=== PATIENT | female | born 1995 | race Caucasian/White ===

== ENCOUNTER → 2016-10-21 | Outpatient (CLI) | payer SELFPAY ==
--- NOTE | 2016-10-21 14:35 | RADIOLOGY REPORT (SQ) ---
EXAM DESCRIPTION: U/S OB 14+ TRNABD 1GES W/O DOP COMPLETED DATE/TIME: 10/21/2016 2:08 pm REASON FOR STUDY: ENCOUNTER FOR SUPERVISION OF NORMAL FIRST , SECOND TRIMESTER Z34.82 ENCO UNTER FOR SUPRVSN OF NORMAL , SECOND TRI COMPARISON: None. TECHNIQUE: Static and Dynamic grayscale imaging performed of gravid uterus using transabdominal appr oach. Additional selected color Doppler and spectral images recorded. All stored on PACS. LIMITATIONS: None. FINDINGS: EGA: 15 weeks 2 days TO: 04/12/2017 EFW: Not calculated grams PERCENTILE: Not applicable SHEILA: 4.4 cm PLACENTA: Anterior question circumvallate placenta. PRESENTATION: Breech ANATOMY: HEART RATE: 143 beats per minute. FOUR CHAMBER HEART: Not confirmed THREE VESSEL CORD: Not confirmed CORD INSERTION: Visualized. KIDNEYS AND BLADDER: Not well seen STOMACH: Visualized. Appears normal. SPINE: Normal as visualized. BRAIN AND LATERAL VENTRICLES: Lateral ventricles appear normal. Cerebellum and cisterna magna not we ll seen. OTHER: No other significant finding. MATERNAL ADNEXA: Maternal ovaries not visualized. CERVICAL LENGTH: 2.9 cm Closed. OTHER: No other significant finding. IMPRESSION: 1. There is a live intrauterine gestation of 15 weeks 2 days with estimated date of del carlos of 04/12/2017. Portions of the anatomy were not well seen because of gestational age and f etal movement. 2. Possible circumvallate placenta. Trimester of : Second trimester - 13 weeks 1 day to 27 weeks 6 days. TECHNICAL DOCUMENTATION: JOB ID: [id number] [employer]- All Rights Reserved
== END ==
LOC: RAD 12:52
PROVIDERS: ATTEND Nurse Practitioner Women's Health
DX: Z34.82 Encounter for supervision of other normal pregnancy, second trimester (principal)
CPT/HCPCS: 76805

== ENCOUNTER 2017-03-08 15:39 | Emergency (ER) | payer MEDICAID ==
[2017-03-08] MEDS ORDERED: ASPIRIN 325 MG TABLET PO ONE (16:24)
--- NOTE | 2017-03-08 16:25 | ER Document Report ---
ED Medical Screen (RME) - General Chief Complaint: Blood Pressure Problem Stated Complaint: BLOOD PRESSURE ISSUE, HEADACHE, CHEST PAIN Time Seen by Provider: 03/08/17 16:24 Mode of Arrival: Ambulatory Information source: Patient TRAVEL OUTSIDE OF THE [place] IN LAST 30 DAYS: No - HPI Patient complains to provider of: cp Onset: Yesterday - pt .s states cp started last night and has continued intermittently into today. - Related Data Allergies/Adverse Reactions: No Known Allergies Allergy (Verified 03/08/17 15:42) Physical Exam - Vital signs Vitals: Temp Pulse Resp BP Pulse Ox 98.4 F 99 18 131/80 H 98 03/08/17 15:45 03/08/17 15:45 03/08/17 15:45 03/08/17 15:45 03/08/17 15:45 Course - Vital Signs Vital signs: Temp Pulse Resp BP Pulse Ox 98.4 F 99 18 131/80 H 98 03/08/17 15:45 03/08/17 15:45 03/08/17 15:45 03/08/17 15:45 03/08/17 15:45
[2017-03-08 16:57] LABS: ABSOLUTE EOSINOPHILS # (AUTO) 0.1 10^3/uL (0.0-0.6); ABSOLUTE LYMPHOCYTES (AUTO) 1.9 10^3/uL (0.5-4.7); ABSOLUTE MONOCYTES (AUTO) 1.2 10^3/uL (0.1-1.4); ABSOLUTE NEUT (AUTO) 11.5 10^3/uL (1.7-8.2); BASOPHILS % (AUTO) 0.1 % (0-2); EOSINOPHILS % (AUTO) 0.7 % (0-6); HEMATOCRIT 34.2 % (36.0-47.0); HEMOGLOBIN 11.8 g/dL (12.0-15.5); LYMPHOCYTES % (AUTO) 12.9 % (13-45); MEAN CORPUSCULAR HEMOGLOBIN 31.3 pg (27.0-33.4); MEAN CORPUSCULAR HGB CONC 34.5 g/dL (32.0-36.0); MEAN CORPUSCULAR VOLUME 91 fl (80-97); PLATELET COUNT 233 10^3/uL (150-450); RED BLOOD COUNT 3.76 10^6/uL (3.72-5.28); RED CELL DISTRIBUTION WIDTH 13.7 % (11.5-14.0); SEGMENTED NEUTROPHILS % (AUTO) 78.3 % (42-78); TOTAL CELLS COUNTED % (AUTO) 100 %; WHITE BLOOD COUNT 14.7 10^3/uL (4.0-10.5)
--- NOTE | 2017-03-08 17:05 | RADIOLOGY REPORT (SQ) ---
EXAM DESCRIPTION: CHEST PA/LAT COMPLETED DATE/TIME: 03/08/2017 4:51 pm REASON FOR STUDY: cp COMPARISON: None. EXAM PARAMETERS: NUMBER OF VIEWS: two views TECHNIQUE: Digital Frontal and Lateral radiographic views of the chest acquired. RADIATION DOSE: NA LIMITATIONS: none FINDINGS: LUNGS AND PLEURA: No opacities, masses or pneumothorax. No pleural effusion. MEDIASTINUM AND HILAR STRUCTURES: No masses or contour abnormalities. HEART AND VASCULAR STRUCTURES: Heart normal size. No evidence for failure. BONES: No acute findings. HARDWARE: None in the chest. OTHER: No other significant finding. IMPRESSION: NO SIGNIFICANT RADIOGRAPHIC FINDING IN THE CHEST. TECHNICAL DOCUMENTATION: JOB ID: [id number] [employer]- All Rights Reserved
[2017-03-08 17:06] LABS: AMORPHOUS SEDIMENT,URINE TRACE /HPF; APPEARANCE,URINE CLOUDY; BILIRUBIN,URINE NEGATIVE (NEGATIVE); COLOR,URINE YELLOW; GLUCOSE, URINE NEGATIVE (NEGATIVE); KETONES,URINE NEGATIVE (NEGATIVE); LEUKOCYTE ESTERASE,URINE NEGATIVE (NEGATIVE); NITRITE,URINE NEGATIVE (NEGATIVE); PROTEIN,URINE NEGATIVE (NEGATIVE); URINE SPECIFIC GRAVITY 1.011; UROBILINOGEN,URINE NEGATIVE mg/dL (<2.0)
[2017-03-08 17:14] LABS: ALANINE AMINOTRANSFERASE 20 U/L (9-52); ALBUMIN 3.8 g/dL (3.5-5.0); ALKALINE PHOSPHATASE 146 U/L (38-126); ANION GAP 5 (5-19); ASPARTATE AMINO TRANSFERASE 14 U/L (14-36); BILIRUBIN,DIRECT 0.3 mg/dL (0.0-0.4); BILIRUBIN,TOTAL 0.3 mg/dL (0.2-1.3); BLOOD UREA NITROGEN 8 mg/dL (7-20); CALCIUM 9.7 mg/dL (8.4-10.2); CARBON DIOXIDE 27 mmol/L (22-30); CHLORIDE 104 mmol/L (98-107); GLUCOSE 77 mg/dL (75-110); POTASSIUM 4.1 mmol/L (3.6-5.0); SODIUM 136.1 mmol/L (137-145); TOTAL PROTEIN 6.9 g/dL (6.3-8.2)
[2017-03-08 17:15] LABS: CREATINE KINASE < 20 U/L (30-135)
[2017-03-08 17:27] LABS: CREATINE KINASE MB < 0.22 ng/mL (<4.55); TROPONIN I < 0.012 ng/mL
[2017-03-08] MEDS ORDERED: FAMOTIDINE 20 MG TABLET PO ONE (19:54)
[2017-03-08] MEDS ORDERED: ACETAMINOPHEN 325 MG TABLET PO ONE (19:55)
--- NOTE | 2017-03-08 20:31 | ER Document Report ---
ED General - General Mode of Arrival: Ambulatory Information source: Patient TRAVEL OUTSIDE OF THE [place] IN LAST 30 DAYS: No <LENNOX SUAREZ - Last Filed: 03/09/17 01:09> <NORMAN GARRETT - Last Filed: 03/09/17 02:52> - General Chief Complaint: Blood Pressure Problem Stated Complaint: BLOOD PRESSURE ISSUE, HEADACHE, CHEST PAIN Time Seen by Provider: 03/08/17 16:24 Notes: Patient is 21 year old female who is currently 35 weeks presents to the emergency department complaining of chest pain and onset last night high blood pressure onset today. Patient states that she was sent to the emergency department by her OBGYN due to high blood pressure. Patient states that her chest pain is better at bedside. Patient denies cramps, light headedness or any vaginal bleeding. (LENNOX SUAREZ) - Related Data Allergies/Adverse Reactions: No Known Allergies Allergy (Verified 03/08/17 15:42) Past Medical History - General Information source: Patient - Social History Smoking Status: Never Smoker Frequency of alcohol use: None Drug Abuse: None Patient has suicidal ideation: No Patient has homicidal ideation: No Renal/ Medical History: Denies: Hx Peritoneal Dialysis <LENNOX SUAREZ - Last Filed: 03/09/17 01:09> - Social History Family History: None <NORMAN GARRETT - Last Filed: 03/09/17 02:52> Review of Systems - Review of Systems -: Yes All other systems reviewed and negative <NORMAN GARRETT - Last Filed: 03/09/17 02:52> Physical Exam <LENNOX SUAREZ - Last Filed: 03/09/17 01:09> <NORMAN GARRETT - Last Filed: 03/09/17 02:52> - Vital signs Vitals: Temp Pulse Resp BP Pulse Ox 98.4 F 99 18 131/80 H 98 03/08/17 15:45 03/08/17 15:45 03/08/17 15:45 03/08/17 15:45 03/08/17 15:45 - Notes Notes: GENERAL: Alert, interacts well. No acute distress. HEAD: Normocephalic, atraumatic. EYES: Appear normal. Pupils equal, round, and reactive to light. ENT: Moist mucus membranes, tongue midline. NECK: Full range of motion. Supple. Trachea midline. LUNGS: Clear to auscultation bilaterally, no wheezes, rales, or rhonchi. No respiratory distress. HEART: Regular rate and rhythm. No murmurs, gallops, or rubs. ABDOMEN: Gravid EXTREMITIES: Moves all 4 extremities spontaneously. Normal strength. No edema. NEUROLOGICAL: Alert and oriented x3. Normal speech. PSYCH: Normal affect, normal mood. SKIN: Warm, dry, normal turgor. No rashes or lesions noted. (LENNOX SUAREZ) Course - Laboratory Result Diagrams: 03/08/17 16:40 03/08/17 16:40 <LENNOX SUAREZ - Last Filed: 03/09/17 01:09> - Laboratory Result Diagrams: 03/08/17 16:40 03/08/17 16:40 - Diagnostic Test Radiology reviewed: Reports reviewed - EKG Interpretation by Me EKG shows normal: Sinus rhythm Rate: Normal Rhythm: NSR <NORMAN GARRETT - Last Filed: 03/09/17 02:52> - Re-evaluation Re-evalutation: 03/09/17 Patient is a 21-year-old female at 35 weeks who comes in with chest pain intermittently. It is not worse with breathing or movement. Patient has had reflux in this and was taking Tums before but stopped doing that because she stated that it felt like it did not help. Blood work within normal limits. Patient also states that there is some concern about her blood pressure being high. Blood pressure here is within normal limits. No protein in urine. No evidence for infection. Chest x-ray clear. Patient was discussed with the HOT METAL MIXER OPERATOR on-call, Dr. Rose and will be sent to labor and delivery for labor check. Patient has no complaints at the time of discharge. We have discussed that the patient's symptoms are atypical for pulmonary embolus and she agrees that we do not need to do imaging at this time. Return immediately if any worsening or concerning symptoms. Stable for discharge. ( NORMAN GARRETT) - Vital Signs Vital signs: Temp Pulse Resp BP Pulse Ox 98.4 F 99 11 L 105/63 97 03/08/17 15:45 03/08/17 15:45 03/08/17 21:01 03/08/17 21:00 03/08/17 21:01 - Laboratory Laboratory results interpreted by me: 03/08/17 03/08/17 03/08/17 16:40 16:40 16:40 WBC 14.7 H Hgb 11.8 L Hct 34.2 L Seg Neutrophils % 78.3 H Lymphocytes % 12.9 L Absolute Neutrophils 11.5 H Sodium 136.1 L Alkaline Phosphatase 146 H Creatine Kinase < 20 L Urine HCG, Qual POSITIVE H Discharge <LENNOX SUAREZ - Last Filed: 03/09/17 01:09> <NORMAN GARRETT - Last Filed: 03/09/17 02:52> - Discharge Clinical Impression: Atypical chest pain GERD (gastroesophageal reflux disease) Qualifiers: Esophagitis presence: esophagitis presence not specified Qualified Code(s): K21.9 - Gastro-esophageal reflux disease without esophagitis Qualifiers: Weeks of gestation: 35 weeks Qualified Code(s): Z3A.35 - 35 weeks gestation of Condition: Stable Disposition: LABOR CHECK Instructions: Chest Pain of Unclear Cause ([facility]), Reflux Disease (GERD) ([facility]) Additional Instructions: Please go directly to Labor and Delivery. Return if you have any worsening or concerning symptoms. Referrals: ADRIANA CASTELLANO MD [Primary Care Provider] - Follow up tomorrow Scribe Attestation: 03/09/17 02:50 I personally performed the services described in the documentation, reviewed and edited the documentation which was dictated to the scribe in my presence, and it accurately records my words and actions. (NORMAN GARRETT)
[2017-03-08 21:30] VITALS: BP 105/63
== END 2017-03-08 21:30 | disposition admitted as inpatient to this hospital (09) ==
LOC: ER 15:39
DX: R07.9 Chest pain, unspecified (principal); K21.9 Gastro-esophageal reflux disease without esophagitis; R03.0 Elevated blood-pressure reading, without diagnosis of hypertension; R51 Headache; Z3A.35 35 weeks gestation of pregnancy
CPT/HCPCS: 99285; 36415; 82553; 82550; 85025; 81025; 80053; 81001; 84484; 71046; J3490 ×2

== ENCOUNTER 2017-03-08 21:40 | Outpatient (CLI) | payer MEDICAID ==
--- NOTE | 2017-03-08 22:16 | Non Stress Test Report ---
Non Stress Test Datetime Report Generated by CPN: 03/08/2017 22:15 DEMOGRAPHIC EGA NST: 35.0 INDICATION Indication for Study: Ordered by Provider MONITORING Monitor Explained: Monitor Explained; Test Explained; Patient Verbalized Understanding Time on Monitor: 03/08/2017 21:40 Time off Monitor: 03/08/2017 22:00 NST Duration: 20 NST INTERVENTIONS NST Interventions: PO Hydration Physician Notified NST: Dr. Rose BABY A: [id number] BABY A Movement : Present Contraction Frequency : no contractions FHR Baseline : 130 Accelerations : 15X15 Decelerations : None Variability : Moderate 6-25bpm NST Review: Meets Criteria for Reactive NST NST Review and Verified By : Linette Garvin RN NST Results: Reactive NST REPORT Report Trigger: Send Report
[2017-03-08 22:37] LABS: APPEARANCE,URINE SLIGHTLY-CLOUDY; BILIRUBIN,URINE NEGATIVE (NEGATIVE); COLOR,URINE YELLOW; GLUCOSE, URINE NEGATIVE (NEGATIVE); KETONES,URINE NEGATIVE (NEGATIVE); LEUKOCYTE ESTERASE,URINE TRACE (NEGATIVE); NITRITE,URINE NEGATIVE (NEGATIVE); PROTEIN,URINE NEGATIVE (NEGATIVE); URINE SPECIFIC GRAVITY 1.013; UROBILINOGEN,URINE NEGATIVE mg/dL (<2.0)
[2017-03-08 22:39] LABS: URINE AMPHETAMINES SCREEN NEGATIVE; URINE BARBITURATES SCREEN NEGATIVE; URINE BENZODIAZEPINES SCREEN NEGATIVE; URINE COCAINE SCREEN NEGATIVE; URINE MARIJUANA (THC) SCREEN NEGATIVE; URINE METHADONE SCREEN NEGATIVE; URINE PHENCYCLIDINE SCREEN NEGATIVE
== END 2017-03-08 22:11 | disposition home or self-care (01) ==
LOC: LC 21:40
PROVIDERS: ATTEND Student in an Organized Health Care Education/Training Program
PROC: 4A1HXCZ Monitoring of Products of Conception, Cardiac Rate, External Approach (ICD-10-PCS; principal; 2017-03-08)
DX: O47.03 False labor before 37 completed weeks of gestation, third trimester (principal); Z3A.35 35 weeks gestation of pregnancy
CPT/HCPCS: 59025; 80307; 81001

== ENCOUNTER 2017-04-10 07:09 | Inpatient (IN) | payer MEDICAID ==
[2017-04-10 10:07] LABS: APPEARANCE,URINE CLEAR; BILIRUBIN,URINE NEGATIVE (NEGATIVE); COLOR,URINE YELLOW; GLUCOSE, URINE NEGATIVE (NEGATIVE); KETONES,URINE TRACE mg/dL (NEGATIVE); LEUKOCYTE ESTERASE,URINE NEGATIVE (NEGATIVE); NITRITE,URINE NEGATIVE (NEGATIVE); PROTEIN,URINE NEGATIVE (NEGATIVE)
[2017-04-10 10:25] LABS: URINE AMPHETAMINES SCREEN NEGATIVE; URINE BARBITURATES SCREEN NEGATIVE; URINE BENZODIAZEPINES SCREEN NEGATIVE; URINE COCAINE SCREEN NEGATIVE; URINE MARIJUANA (THC) SCREEN NEGATIVE; URINE METHADONE SCREEN NEGATIVE; URINE PHENCYCLIDINE SCREEN NEGATIVE
[2017-04-10] MEDS ORDERED: PENICILLIN G POTASSIUM 5,000,000 UNIT in DEXTROSE 5%-WATER 100 ML IV ONE (11:04)
[2017-04-10] MEDS ORDERED: LIDOCAINE 1% INJ-PF (10 MG/ML) 30 ML SDV ONE (11:11)
[2017-04-10] MEDS ORDERED: OXYTOCIN/NORMAL SALINE 20 UNIT/1,000 ML RTUINJ ONE (11:11)
[2017-04-10] MEDS ORDERED: MISOPROSTOL 0.2 MG TABLET ONE (11:11)
[2017-04-10] MEDS ORDERED: PENICILLIN G-K 5 MILLION UNIT VIAL ONE ×2 (11:26→15:30)
[2017-04-10] MEDS ORDERED: RINGERS SOLUTION,LACTATED 1,000 ML IV ONE (11:46)
[2017-04-10] MEDS ORDERED: RINGERS SOLUTION,LACTATED 1,000 ML IV PRN (11:46)
[2017-04-10 11:49] LABS: HEMATOCRIT 34.7 % (36.0-47.0); HEMOGLOBIN 11.7 g/dL (12.0-15.5); MEAN CORPUSCULAR HEMOGLOBIN 29.8 pg (27.0-33.4); MEAN CORPUSCULAR HGB CONC 33.7 g/dL (32.0-36.0); MEAN CORPUSCULAR VOLUME 88 fl (80-97); PLATELET COUNT 249 10^3/uL (150-450); RED BLOOD COUNT 3.93 10^6/uL (3.72-5.28); WHITE BLOOD COUNT 14.6 10^3/uL (4.0-10.5)
[2017-04-10] MEDS ORDERED: EPHEDRINE SULFATE INJ 50 MG/1 ML AMPULE ONE (12:18)
[2017-04-10] MEDS ORDERED: FENTANYL/BUPIVACAINE/NS/PF 200 MCG/100 ML RTUINJ EPI ONE (12:18)
[2017-04-10] MEDS ORDERED: BUPIVACAINE HCL 0.25 % INJ/PF (2.5 MG/1 ML) 30 ML VIAL ONE (12:18)
[2017-04-10] MEDS ORDERED: PENICILLIN G POTASSIUM 2,500,000 UNIT in DEXTROSE 5%-WATER 50 ML IV SCH (15:05)
--- NOTE | 2017-04-10 16:00 | L&D Progress Notes ---
PROGRESS NOTES Datetime Report Generated by CPN: 04/10/2017 16:00 PROGRESS NOTE Impression: Normal Progression of Labor Procedures: Artificial ROM; Sterile Vag Exam Plan: Continue Present Management Informed Consent Obtained: Vaginal Delivery; Risks, Benefits and Alternatives Discussed Vital Signs : Reviewed; Within Normal Limits Comment: S: feeling vaginal/perineal pressure with contractions, pain relieved with epidural O: VSS, cervix and contractions as stated above A: IUP @ 39w5d in labor-stable, progressing, AROM-clear fluid P: labor down x 30min to allow for descend, pt. and FOB asked questions and verbalized understanding. VAGINAL EXAM Dilatation: 10 Dilatation: 5 Effacement: 100 Effacement: 100 Station: 0 Station: -1 Contractions: 3-5 Contractions: 2-5 MEMBRANES Membranes: Ruptured Membranes: Bulging Amniotic Fluid Color: Clear FETUS A FHR - Baseline: 120 Variability: Moderate 6-25bpm Accelerations: 15X15 FHR Category: Category I Presentation: Vertex SIGNATURE SIGNATURE: [id number];[id number] SIGNATURE: [id number] Assignment: Arabella Garcia MD Signature: with User ID: Elena : with User ID: Elena
[2017-04-10] MEDS ORDERED: ACETAMINOPHEN WITH CODEINE #3 TABLET PO PRN ×2 (18:23)
[2017-04-10] MEDS ORDERED: OXYTOCIN/NORMAL SALINE 20 UNIT/1,000 ML RTUINJ IV PRN (18:23)
[2017-04-10] MEDS ORDERED: ZOLPIDEM TARTRATE 5 MG TABLET PO PRN (18:23)
[2017-04-10] MEDS ORDERED: PROMETHAZINE HCL 25 MG SUPP.RECT PR PRN (18:23)
[2017-04-10] MEDS ORDERED: MAGNESIUM HYDROXIDE SUSP 30 ML UDCUP PO PRN (18:23)
[2017-04-10] MEDS ORDERED: ACETAMINOPHEN 650 MG SUPP.RECT PR PRN (18:23)
[2017-04-10] MEDS ORDERED: GLYCERIN/WITCH HAZEL LEAF 1 EACH MED..PAD TP PRN (18:23)
[2017-04-10] MEDS ORDERED: DIBUCAINE 1% OINTMENT 28 GM TP PRN (18:23)
[2017-04-10] MEDS ORDERED: PSEUDOEPHEDRINE HCL 30 MG TABLET PO PRN (18:23)
[2017-04-10] MEDS ORDERED: BENZOCAINE/MENTHOL AEROSOL SPRAY 56 ML TOP PRN (18:23)
[2017-04-10] MEDS ORDERED: NA PHOS,M-B/NA PHOS,DI-BA (ADULT) 133 ML ENEMA PR PRN (18:23)
[2017-04-10] MEDS ORDERED: PROMETHAZINE HCL 25 MG TABLET PO PRN (18:23)
[2017-04-10] MEDS ORDERED: PROMETHAZINE HCL INJ 25 MG/1 ML VIAL IV PRN (18:23)
[2017-04-10] MEDS ORDERED: DIPHENHYDRAMINE HCL 25 MG CAPSULE PO PRN (18:23)
[2017-04-10] MEDS ORDERED: DIPH/PERTUSS(ACELL)/TETANUS VAC/PF 0.5 ML SYR (>=10YO) IM PRN (18:23)
[2017-04-10] MEDS ORDERED: MEASLES,MUMPS&RUBELLA VACC/PF 0.5 ML VIAL SUBCUT PRN (18:23)
--- NOTE | 2017-04-10 19:24 | Warning Signs in Babies ---
VOD Warning Signs Datetime Report Generated by [facility]: 04/10/2017 19:24 VOD#608 -Warning Signs in Babies: Needs to be viewed. (03/08/2017 21:11:Tami Edward RN)
--- NOTE | 2017-04-10 20:00 | Delivery Summary ---
Del Sum A-C Datetime Report Generated by CPN: 04/10/2017 20:00 DELIVERY PERSONNEL DELIVERY PERSONNEL: [id number] Delivery Doctor:: Zoe Owen CNM Nurse Engineering Faculty Certified:: Zoe Owen CNM Labor and Delivery Nurse:: Tami Edward RNcar repairer pullman Nurse:: MARC Butt Nursery Nurse:: Natalie Melton RN Nut Culler/THEATRICAL DRESSER: ST Erica Nut Culler/THEATRICAL DRESSER: Kelly brown Additional Personnel: : dad/mom/dads mom MATERNAL INFORMATION Delivery Anesthesia: Epidural Medications After Delivery: Pitocin Bolus-Please Comment; Pitocin Drip 20 Units/1000ml NSS; Other-Please Comment Meds After Delivery Comment: Cytotec 1000 mcg [place] Maternal Complications: None Provider Comments: After laboring down _45min, pt. began pushing and with much coaching went on to deliver a viable baby boy thru nuchal cord. Spontaneous respiratory effort and cry at delivery. Baby placed on maternal abdomen and cord allowed to stop pulsating then clamped x2 and cut FOB (3vc noted). Placenta delivered spontaneoulsy, trailing membranes noted and out. Vaginal and perineal inspection revealed no lacerations. Fundus @ U-2, firm and minimal bleeding. Mother and baby skin to skin, bonding and stable at this time LABOR SUMMARY EDC: 04/12/2017 00:00 No. Babies in Womb: 1 Attempted: No Labor Anesthesia: Epidural LABOR INFORMATION Reason for Induction: Not Applicable Onset of Labor: 04/10/2017 07:00 Complete Dilatation: 04/10/2017 15:53 Oxytocin: N/A Group B Beta Strep: positive Antibiotics # of Doses: 2 Antibiotics Time of Last Dose: 1530 Name of Antibiotic Given: penicillin Steroids Given: None Reason Steroids Not Administered: Not Applicable MEMBRANES Membranes Rupture Method: Artificial Rupture of Membranes: 04/10/2017 15:53 Length of Rupture (hr): 2.42 Amniotic Fluid Color: Clear Amniotic Fluid Amount: Moderate Amniotic Fluid Odor: Normal STAGES OF LABOR Stage 1 hr: 8 Stage 1 min: 53 Stage 2 hr: 2 Stage 2 min: 25 Stage 3 hr: 0 Stage 3 min: 5 Total Time in Labor hr: 11 Total Time in Labor min: 23 VAGINAL DELIVERY Episiotomy: None Laceration #1: None Laceration #2: None Laceration #3: None Other Laceration: n/a Laceration Repair: Not Applicable Sponge Count Correct: N/A CSECTION DELIVERY Primary Indication: N/A Secondary Indication: N/A CSection Incidence: N/A Labor: N/A Elective: N/A CSection Incision: N/A BABY A INFORMATION Infant Delivery Date/Time: 04/10/2017 18:18 Method of Delivery: Vaginal Born in Route : No : N/A Forceps: N/A Vacuum Extraction: N/A Shoulder Dystocia : No PRESENTATION/POSITION BABY A Presentation: Cephalic Cephalic Presentation: Vertex Vertex Position: Left Occipital Anterior Breech Presentation: N/A PLACENTA INFORMATION BABY A Placenta Delivery Time : 04/10/2017 18:23 Placenta Method of Delivery: Spontaneous Placenta Status: Delivered SCORES BABY A Heart Rate 1 min: >100 bpm Resp Effort 1 min: Good Cry Reflex Irritability 1 min: Cough or Sneeze or Pulls Away Muscle Tone 1 min: Active Motion Color 1 min: Body [place], Extremities Blue Resuscitation Effort 1 min: Tactile Stimulation SCORE 1 MIN: 9 Heart Rate 5 min: >100 bpm Resp Effort 5 min: Good Cry Reflex Irritability 5 min: Cough or Sneeze or Pulls Away Muscle Tone 5 min: Active Motion Color 5 min: Body [place], Extremities Blue Resuscitation Effort 5 min: Tactile Stimulation SCORE 5 MIN: 9 INFORMATION BABY A Gestational Age at Delivery: 39.5 Gestational Status: Full Term- 39- 40.6 Weeks Infant Outcome : Liveborn Infant Condition : Stable Infant Sex: Male IDENTIFICATION BABY A Verification Date/Time: 04/10/2017 18:50 ID Band Number: [id number] Mother's Name Verified: Yes RN Verifying Infant: J, RN and C.Lester, RN WEIGHT/LENGTH BABY A Birthweight (gm): 3440 Weight (lb): 7 Weight (oz): 9 Infant Length (in): 20.00 Length (cm): 50.80 CORD INFORMATION BABY A No. Cord Vessels: 3 Nuchal Cord : Around Neck x1, Loose Cord Blood Taken: Yes-For Eval (Mom's Blood Type - or O+) Infant Suction: None ASSESSMENT BABY A Infant Complications: None Physical Findings at Delivery: Within Normal Limits Respirations: Appears Normal Skin to Skin: Yes Cargo Broker/ALS Called : No Care By: Manjeet Melton RN Transferred To: Remains with Mother BABY B INFORMATION : N/A SIGNATURES Assignment: Arabella Garcia MD Signature: with User ID: Elena : with User ID: Elena
--- NOTE | 2017-04-10 22:03 | Admission Physical ---
Datetime Report Generated by CPN: 04/10/2017 22:03 CURRENT ADMISSION Hx Assessment: The History has been Reviewed and is Current Chief Complaint: Uterine Contractions Indication for Induction: Not Applicable Indication for Induction: Term, Intrauterine ; Active Labor Admit Plan: Admit to Unit; Initiate Labor Protocol ALLERGIES Medication Allergies: No Medication Allergies: No Known Allergies (04/10/2017) Medication Allergies: No Known Allergies (03/08/2017) Latex: No Latex Allergies Food Allergies: none Environmental Allergies: none OBSTETRICAL HISTORY EDC: 04/12/2017 00:00 : 1 Para: 0 Term: 0 : 0 SAB: 0 IAB: 0 Ectopic: 0 Livin Cesareans: 0 VBACs: 0 Multiple Births: 0 Gestational Diabetes: No Rh Sensitization: No Incompetent Cervix: No YASH: No Infertility: No ART Treatment: No Uterine Anomaly: No IUGR: No Hx Previous C/S: No Macrosomia: No Hx Loss/Stillborn: No PIH: No Hx : No Placenta Previa/Abruption: No Depression/PP Depression: No PTL/PROM: No Post Hemorrhage: No Current Procedures: Ultrasound; NST Obstetrical History Comments: G1 current SEE RECORDS Alcohol: No Marijuana : No Cocaine: No Other Illicit Drugs: No Cigarettes: Former Smoker. [id number] MEDICAL HISTORY Diabetes: No Blood Transfusion: No Pulmonary Disease (Asthma, TB): No Breast Disease: No Hypertension: No Data Conversion Operator Surgery: No Heart Disease: No Hosp/Surgery: No Autoimmune Disorder: No Anesthetic Complications: No Kidney Disease: No Abnormal Pap Smear: No Neuro/Epilepsy: No Psychiatric Disorders: No Other Medical Diseases: No Hepatitis/Liver Disease: No Significant Family History: No Varicosities/Phlebitis: No Trauma/Violence : No Thyroid Dysfunction: No INFECTIOUS HISTORY Gonorrhea: Yes Genital Herpes: No Chlamydia: No Tuberculosis: No Syphilis: No Hepatitis: No HIV/AIDS Exposure: No Rash or Viral Illness: No HPV: No Infectious History Comments: test of cure for gonorrhea PHYSICAL EXAM General: Normal HEENT: Deferred Neurologic: Normal Thyroid: Deferred Heart: Normal Lungs: Normal Breast: Deferred Back: Normal Abdomen: Normal Genitourinary Exam: Normal Extremities: Normal DTRs: Deferred Pelvic Type: Adequate Physical Exam Comments: cervix per RN exam VAGINAL EXAM Dilatation: 10 Dilatation: 5 Effacement: 100 Effacement: 100 Station: 0 Station: -1 Contraction Comments: 3-5 Contraction Comments: 2-5 MEMBRANES Membranes: Ruptured Membranes: Bulging Amniotic Fluid Color: Clear FETUS A EGA: 39.5 Monitoring: External US FHR- Baseline: 120 Variability: Moderate 6-25bpm Accelerations: 15X15 Decelerations: None FHR Category: Category I Presentation: Vertex Admit Comment: 21yo @ 39w5d per 15w2d u/s into L_D this AM with UC and cervix changed after walking, admitted for anticipated delivery. Pt. 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 also complicated by Positive chlamydia at NOB with negative ED. Pt. denies any concerns today and reports +FM. Denies LOF/bleeding. Desires epidural for pain control. Dr. Garcia in unit and aware. PLANS FOR LABOR AND DELIVERY Labor and Delivery: None Pain Management: None Feeding Preference: Formula Benefit of Breast Feed Discussed: Yes Circumcision: Yes INFORMED CONSENT Informed Consent Obtained: Vaginal Delivery; Risks, Benefits and Alternatives Discussed Assignment: Arabella Garcia MD Signature: with User ID: Elena : with User ID: [email or web address]
[2017-04-10] MEDS: FAMOTIDINE 20 MG TABLET PO SCH (22:42)
[2017-04-10] MEDS: IBUPROFEN 800 MG TABLET PO SCH (22:42)
[2017-04-11] MEDS: IBUPROFEN 800 MG TABLET PO SCH ×3 (05:56→22:10)
[2017-04-11 08:25] LABS: HEMATOCRIT 28.3 % (36.0-47.0); HEMOGLOBIN 9.5 g/dL (12.0-15.5); MEAN CORPUSCULAR HEMOGLOBIN 30.1 pg (27.0-33.4); MEAN CORPUSCULAR HGB CONC 33.5 g/dL (32.0-36.0); MEAN CORPUSCULAR VOLUME 90 fl (80-97); PLATELET COUNT 198 10^3/uL (150-450); RED BLOOD COUNT 3.16 10^6/uL (3.72-5.28); RED CELL DISTRIBUTION WIDTH 14.5 % (11.5-14.0); WHITE BLOOD COUNT 15.7 10^3/uL (4.0-10.5)
[2017-04-11] MEDS: DOCUSATE SODIUM 100 MG CAPSULE PO SCH ×2 (09:46→17:21)
[2017-04-11] MEDS: FERROUS SULFATE 325 MG TABLET PO SCH ×2 (09:46→17:21)
[2017-04-11] MEDS: FAMOTIDINE 20 MG TABLET PO SCH ×2 (09:46→22:11)
[2017-04-11] MEDS: PRENATAL VITAMIN W DHA CAPSULE PO SCH (09:46)
[2017-04-11] MEDS: SENNOSIDES/DOCUSATE 8.6-50 MG 1 EACH TABLET PO SCH (09:47)
--- NOTE | 2017-04-11 12:20 | PDOC PROGRESS REPORT ---
Subjective-OB Progress Note for:: 04/11/17 Subjective: reports tolerating diet, bleeding slowing, pain controlled with current meds; denies needs. Physical Exam (OB) Vital Signs: Temp Pulse Resp BP Pulse Ox 98.1 F 80 16 115/48 L 100 04/11/17 08:08 04/11/17 08:08 04/11/17 08:08 04/11/17 08:08 04/11/17 08:08 Intake & Output 04/10/17 04/11/17 04/12/17 06:59 06:59 06:59 Weight 72.7 kg - Abdomen Description: Soft, Round Hernia Present: No Fundal Description: Firm, Midline Fundal Height: u/u - u/2 - Abdominal Tenderness: Nontender - Extremities Lower extremities: Tonya's sign - neg Calf: Normal, Nontender Objective-Diagnostic Laboratory: 04/11/17 08:03 04/10/17 04/11/17 11:32 08:03 WBC 15.7 H RBC 3.16 L Hgb 9.5 L D Hct 28.3 L MCV 90 MCH 30.1 MCHC 33.5 RDW 14.5 H Plt Count 198 Blood Type O POSITIVE Antibody Screen NEGATIVE Assessment and Plan(PN) - Assessment and Plan (1) Normal vaginal delivery Is this a current diagnosis for this admission?: Yes (2) Anemia due to acute blood loss Is this a current diagnosis for this admission?: Yes - Time Spent with Patient Time with patient: Less than 15 minutes - Disposition Anticipated Discharge: Home Within: within 24 hours
[2017-04-12] MEDS: IBUPROFEN 800 MG TABLET PO SCH (06:16)
[2017-04-12 08:59] VITALS: BP 109/67
--- NOTE | 2017-04-12 09:22 | PDOC PROGRESS REPORT ---
Subjective-OB Progress Note for:: 04/12/17 Subjective: Doing well, OOB ambulating, eating well, voiding, scant bleeding, unsure of control Physical Exam (OB) Vital Signs: Temp Pulse Resp BP Pulse Ox 97.6 F 77 14 109/67 100 04/12/17 08:36 04/12/17 08:36 04/12/17 08:36 04/12/17 08:36 04/12/17 08:36 Intake & Output 04/11/17 04/12/17 04/13/17 06:59 06:59 06:59 Intake Total 200 Balance 200 Weight 72.7 kg - PIH/Pre-Eclampsia DTR's: 2 + Clonus: Negative Headache: Absent Epigastric Pain: No Visual Changes: No - Lochia Lochia Amount: Scant < 10 ml Lochia Color: Rubra/Red - Abdomen Description: Tender, Soft, Round Hernia Present: No Fundal Description: Firm, Midline Fundal Height: u/u - u/2 Objective-Diagnostic Laboratory: 04/11/17 08:03 Assessment and Plan(PN) - Assessment and Plan (1) Normal vaginal delivery Is this a current diagnosis for this admission?: Yes (2) Anemia due to acute blood loss Is this a current diagnosis for this admission?: Yes - Time Spent with Patient Time with patient: Less than 15 minutes - Disposition Anticipated Discharge: Home Within: Other - home today
--- NOTE | 2017-04-12 09:25 | PDOC DISCHARGE SUMMARY ---
Final Diagnosis Discharge Date: 04/12/17 - Final Diagnosis (1) Normal vaginal delivery Is this a current diagnosis for this admission?: Yes (2) Anemia due to acute blood loss Is this a current diagnosis for this admission?: Yes Discharge Data - Discharge Medication Home Medications: Famotidine [Pepcid 20 mg Tablet] 1 tab PO DAILYP PRN 04/11/17 Vit No.129/Iron/Folic [ One Daily Tablet] 1 tab PO DAILY Gestational Age: 39.5 Reason(s) for Admission: Onset of Labor, Group B Strep Positive Procedures: NST, Ultrasound Intrapartum Procedure(s): Spontaneous Vaginal Delivery Complication(s): Laceration-Vaginal - Data Baby 1 Male at 1 minute: 9 at 5 minutes: 9 Weight: 3.43 kg Home with Mother: Yes Complications: No - Diagnosis Test Laboratory: Temp Pulse Resp BP Pulse Ox 97.6 F 77 14 109/67 100 04/12/17 08:36 04/12/17 08:36 04/12/17 08:36 04/12/17 08:36 04/12/17 08:36 04/10/17 04/10/17 04/10/17 08:01 09:45 11:32 RBC 3.93 Hgb 11.7 L Hct 34.7 L Urine Opiates Screen Cancelled NEGATIVE 04/11/17 08:03 RBC 3.16 L Hgb 9.5 L D Hct 28.3 L Urine Opiates Screen - Discharge information/Instructions Discharge Activity: Activity As Tolerated, No Lifting Over 10 Pounds, No Lifting /Push/Pulling, Pelvic Rest Discharge Diet: As Tolerated, Regular Disposition: HOME, SELF-CARE Follow up with: [facility] in: 4
[2017-04-12] MEDS: PRENATAL VITAMIN W DHA CAPSULE PO SCH (09:37)
[2017-04-12] MEDS: FERROUS SULFATE 325 MG TABLET PO SCH (09:37)
[2017-04-12] MEDS: DOCUSATE SODIUM 100 MG CAPSULE PO SCH (09:37)
[2017-04-12] MEDS: SENNOSIDES/DOCUSATE 8.6-50 MG 1 EACH TABLET PO SCH (09:37)
[2017-04-12] MEDS: FAMOTIDINE 20 MG TABLET PO SCH (10:55)
== END 2017-04-12 12:44 | disposition home or self-care (01) | DRG 775 ==
LOC: LC 07:09 → INTOOBSV 10:59 → LR 10:59 → OBSVTOIN 10:59 → 2S 21:25
PROVIDERS: ADMIT Obstetrics & Gynecology; ATTEND Obstetrics & Gynecology
PROC: 10E0XZZ Delivery of Products of Conception, External Approach (ICD-10-PCS; principal; 2017-04-10)
PROC: 10907ZC Drainage of Amniotic Fluid, Therapeutic from Products of Conception, Via Natural or Artificial Opening (ICD-10-PCS; 2017-04-10)
PROC: 4A1HXCZ Monitoring of Products of Conception, Cardiac Rate, External Approach (ICD-10-PCS; 2017-04-10)
DX: O99.824 Streptococcus B carrier state complicating childbirth (principal); D62 Acute posthemorrhagic anemia; O99.02 Anemia complicating childbirth; O69.81X0 Labor and delivery complicated by cord around neck, without compression, not applicable or unspecified; Z87.891 Personal history of nicotine dependence; Z28.21 Immunization not carried out because of patient refusal; Z3A.39 39 weeks gestation of pregnancy; Z37.0 Single live birth
CPT/HCPCS: 36415; 80307; 81005; 85027; 86592; 86850; 86900; 86901; 88307; J2540; J2590; J3490

== ENCOUNTER 2019-04-28 14:11 | Inpatient (IN) | payer MEDICAID ==
[2019-04-28] MEDS ORDERED: RINGERS SOLUTION,LACTATED 1,000 ML IV ONE (14:36)
[2019-04-28] MEDS ORDERED: RINGERS SOLUTION,LACTATED 1,000 ML IV PRN (14:36)
[2019-04-28] MEDS ORDERED: MORPHINE SULFATE 10 MG/ML INJ IV ONE (14:36)
[2019-04-28] MEDS ORDERED: OXYTOCIN/NORMAL SALINE 20 UNIT/1,000 ML RTUINJ ONE (14:40)
[2019-04-28] MEDS ORDERED: LIDOCAINE 1% INJ-PF (10 MG/ML) 30 ML SDV ONE (14:40)
[2019-04-28] MEDS ORDERED: MISOPROSTOL 0.2 MG TABLET ONE (14:40)
[2019-04-28] MEDS ORDERED: MORPHINE SULFATE 10 MG/ML INJ ONE (14:49)
[2019-04-28 15:20] LABS: ABSOLUTE LYMPHOCYTES (AUTO) 1.2 10^3/uL (0.5-4.7); ABSOLUTE MONOCYTES (AUTO) 0.6 10^3/uL (0.1-1.4); ABSOLUTE NEUT (AUTO) 9.6 10^3/uL (1.7-8.2); BASOPHILS % (AUTO) 0.1 % (0-2); EOSINOPHILS % (AUTO) 0.3 % (0-6); HEMATOCRIT 34.4 % (36.0-47.0); HEMOGLOBIN 11.8 g/dL (12.0-15.5); LYMPHOCYTES % (AUTO) 10.8 % (13-45); MEAN CORPUSCULAR HEMOGLOBIN 29.4 pg (27.0-33.4); MEAN CORPUSCULAR HGB CONC 34.2 g/dL (32.0-36.0); MEAN CORPUSCULAR VOLUME 86 fl (80-97); PLATELET COUNT 174 10^3/uL (150-450); RED CELL DISTRIBUTION WIDTH 16.1 % (11.5-14.0); SEGMENTED NEUTROPHILS % (AUTO) 83.8 % (42-78); TOTAL CELLS COUNTED % (AUTO) 100 %; WHITE BLOOD COUNT 11.4 10^3/uL (4.0-10.5)
[2019-04-28 15:26] LABS: APPEARANCE,URINE CLOUDY; BILIRUBIN,URINE NEGATIVE (NEGATIVE); COLOR,URINE YELLOW; GLUCOSE, URINE NEGATIVE (NEGATIVE); KETONES,URINE NEGATIVE (NEGATIVE); LEUKOCYTE ESTERASE,URINE LARGE (NEGATIVE); NITRITE,URINE NEGATIVE (NEGATIVE); PROTEIN,URINE NEGATIVE (NEGATIVE); URINE SPECIFIC GRAVITY 1.005; UROBILINOGEN,URINE NEGATIVE mg/dL (<2.0)
--- NOTE | 2019-04-28 15:28 | Admission Physical ---
Datetime Report Generated by CPN: 04/28/2019 15:28 CURRENT ADMISSION Chief Complaint: Uterine Contractions Indication for Induction: Not Applicable Admit Impression : Term, Intrauterine Admit Plan: Admit to Unit; Initiate Labor Protocol ALLERGIES Medication Allergies: No Medication Allergies: No Known Allergies (04/10/2017) Latex: No Latex Allergies Food Allergies: denies Environmental Allergies: denies OBSTETRICAL HISTORY EDC: 05/10/2019 00:00 : 2 Para: 1 Term: 1 Livin Cesareans: 0 Gestational Diabetes: No Rh Sensitization: No Incompetent Cervix: No YASH: No Infertility: No ART Treatment: No Uterine Anomaly: No IUGR: No Hx Previous C/S: No Macrosomia: No Hx Loss/Stillborn: No PIH: No Hx : No Placenta Previa/Abruption: No Depression/PP Depression: No PTL/PROM: No Post Hemorrhage: No Current Procedures: Ultrasound; NST Obstetrical History Comments: G1- 2017 39 weeks G2- current + GC/chlam SEE RECORDS Alcohol: No Marijuana : No Cocaine: No Other Illicit Drugs: No Cigarettes: Former Smoker. [id number] MEDICAL HISTORY Diabetes: No Blood Transfusion: No Pulmonary Disease (Asthma, TB): No Breast Disease: No Hypertension: No Electronic Equipment Maint Tech Surgery: No Heart Disease: No Hosp/Surgery: No Autoimmune Disorder: No Anesthetic Complications: No Kidney Disease: No Abnormal Pap Smear: No Neuro/Epilepsy: No Psychiatric Disorders: No Other Medical Diseases: No Hepatitis/Liver Disease: No Significant Family History: No Varicosities/Phlebitis: No Trauma/Violence : No Thyroid Dysfunction: No INFECTIOUS HISTORY Gonorrhea: Yes Genital Herpes: No Chlamydia: Yes Tuberculosis: No Syphilis: No Hepatitis: No HIV/AIDS Exposure: No Rash or Viral Illness: No HPV: No Infectious History Comments: + GC chlam in 2018, ED in 01/2019 PHYSICAL EXAM General: Normal HEENT: Normal Neurologic: Normal Thyroid: Normal Heart: Normal Lungs: Normal Breast: Deferred Back: Normal Abdomen: Normal Genitourinary Exam: Normal Extremities: Normal DTRs: Normal Pelvic Type: Adequate FETUS A EGA: 38.2 PLANS FOR LABOR AND DELIVERY Labor and Delivery: None Pain Management: Medications; Epidural Feeding Preference: Both Benefit of Breast Feed Discussed: Yes Circumcision: N/A INFORMED CONSENT Signature: with User ID: [email or web address]
[2019-04-28] MEDS ORDERED: ACETAMINOPHEN 650 MG SUPP.RECT PR PRN (15:32)
[2019-04-28] MEDS ORDERED: GLYCERIN/WITCH HAZEL LEAF 1 EACH MED..WIPE TP PRN (15:32)
[2019-04-28] MEDS ORDERED: OXYTOCIN/NORMAL SALINE 20 UNIT/1,000 ML RTUINJ IV PRN (15:32)
[2019-04-28] MEDS ORDERED: DIPHENHYDRAMINE HCL 25 MG CAPSULE PO PRN (15:32)
[2019-04-28] MEDS ORDERED: PROMETHAZINE HCL 25 MG SUPP.RECT PR PRN (15:32)
[2019-04-28] MEDS ORDERED: PROMETHAZINE HCL INJ 25 MG/1 ML VIAL IV PRN (15:32)
[2019-04-28] MEDS ORDERED: DIBUCAINE 1% OINTMENT 28 GM TP PRN (15:32)
[2019-04-28] MEDS ORDERED: DIPH/PERTUSS(ACELL)/TETANUS VAC/PF 0.5 ML SYR (>=10YO) IM PRN (15:32)
[2019-04-28] MEDS ORDERED: BENZOCAINE/MENTHOL AEROSOL SPRAY 56 ML TOP PRN (15:32)
[2019-04-28] MEDS ORDERED: PROMETHAZINE HCL 25 MG TABLET PO PRN (15:32)
[2019-04-28] MEDS ORDERED: NA PHOS,M-B/NA PHOS,DI-BA (ADULT) 133 ML ENEMA PR PRN (15:32)
[2019-04-28] MEDS ORDERED: MAGNESIUM HYDROXIDE SUSP 30 ML UDCUP PO PRN (15:32)
[2019-04-28] MEDS ORDERED: MEASLES,MUMPS&RUBELLA VACC/PF 0.5 ML VIAL SUBCUT PRN (15:32)
[2019-04-28] MEDS ORDERED: ZOLPIDEM TARTRATE 5 MG TABLET PO PRN (15:32)
[2019-04-28] MEDS ORDERED: PSEUDOEPHEDRINE HCL 30 MG TABLET PO PRN (15:32)
[2019-04-28 15:47] LABS: URINE AMPHETAMINES SCREEN NEGATIVE; URINE BARBITURATES SCREEN NEGATIVE; URINE BENZODIAZEPINES SCREEN NEGATIVE; URINE COCAINE SCREEN NEGATIVE; URINE MARIJUANA (THC) SCREEN NEGATIVE; URINE METHADONE SCREEN NEGATIVE; URINE PHENCYCLIDINE SCREEN NEGATIVE
[2019-04-28] MEDS ORDERED: ACETAMINOPHEN WITH CODEINE #3 TABLET ONE (15:50)
[2019-04-28] MEDS: ACETAMINOPHEN WITH CODEINE #3 TABLET PO PRN (15:52)
[2019-04-28 16:57] LABS: CHLAM PCR NOT DETECTED (NOT DETECT)
--- NOTE | 2019-04-28 17:26 | Delivery Summary ---
Del Sum A-C Datetime Report Generated by CPN: 04/28/2019 17:26 DELIVERY PERSONNEL DELIVERY PERSONNEL: [id number] Delivery Doctor:: Jg Roman MD Labor and Delivery Nurse:: Roseann Batista RNrefrigeration service technician Nurse:: Becca Singh RN Repair Cameraman/DATABASE MARKETING ANALYST: Kelly Dejesus, [employer] Repair Cameraman/DATABASE MARKETING ANALYST: Yoanna MATERNAL INFORMATION Delivery Anesthesia: None Medications After Delivery: Pitocin Bolus-Please Comment Meds After Delivery Comment: pitocin 20 units in 1 L NS bolusing per order Delivery QBL: 75 Maternal Complications: None LABOR SUMMARY EDC: 05/10/2019 00:00 No. Babies in Womb: 1 Attempted: No Labor Anesthesia: None LABOR INFORMATION Reason for Induction: Not Applicable Onset of Labor: 04/28/2019 08:00 Complete Dilatation: 04/28/2019 15:16 Oxytocin: N/A Group B Beta Strep: Negative Antibiotics # of Doses: 0 Antibiotics Time of Last Dose: n/a Name of Antibiotic Given: n/a Steroids Given: None Reason Steroids Not Administered: Not Applicable MEMBRANES Membranes Rupture Method: Artificial Rupture of Membranes: 04/28/2019 15:16 Length of Rupture (hr): 0.08 Amniotic Fluid Color: Clear Amniotic Fluid Amount: Scant Amniotic Fluid Odor: Normal STAGES OF LABOR Stage 1 hr: 7 Stage 1 min: 16 Stage 2 hr: 0 Stage 2 min: 5 Stage 3 hr: 0 Stage 3 min: 3 Total Time in Labor hr: 7 Total Time in Labor min: 24 VAGINAL DELIVERY Episiotomy: None Laceration #1: None Laceration Extension #1: N/A Laceration Repair: Not Applicable Sponge Count Correct: Yes Sharps Count Correct: Yes CSECTION DELIVERY Primary Indication: N/A Secondary Indication: N/A CSection Incidence: N/A Labor: N/A Elective: N/A CSection Incision: N/A BABY A INFORMATION Delivery Date/Time: 04/28/2019 15:21 Method of Delivery: Vaginal Nurse Controlled Delivery: No Born in Route : No : N/A Forceps: N/A Vacuum Extraction: N/A Shoulder Dystocia : No PRESENTATION/POSITION BABY A Presentation: Cephalic Cephalic Presentation: Vertex Vertex Position: Left Occipital Anterior Breech Presentation: N/A PLACENTA INFORMATION BABY A Placenta Delivery Time : 04/28/2019 15:24 Placenta Method of Delivery: Spontaneous Placenta Status: Delivered SCORES BABY A Heart Rate 1 min: >100 bpm Resp Effort 1 min: Good Cry Reflex Irritability 1 min: Cough or Sneeze or Pulls Away Muscle Tone 1 min: Active Motion Color 1 min: Blue/Pale Resuscitation Effort 1 min: Tactile Stimulation SCORE 1 MIN: 8 Heart Rate 5 min: >100 bpm Resp Effort 5 min: Good Cry Reflex Irritability 5 min: Cough or Sneeze or Pulls Away Muscle Tone 5 min: Active Motion Color 5 min: Body [place], Extremities Blue Resuscitation Effort 5 min: Tactile Stimulation SCORE 5 MIN: 9 INFANT INFORMATION BABY A Gestational Age at Delivery: 38.2 Gestational Status: Early Term- 37- 38.6 Weeks Outcome : Liveborn Condition : Stable Infant Sex: Female IDENTIFICATION BABY A Infant Verification Date/Time: 04/28/2019 15:50 ID Band Number: [id number] Mother's Name Verified: Yes RN Verifying : B Francisco RN Additional Verifying Personnel: Chela Batista RN WEIGHT/LENGTH BABY A Birthweight (gm): 3270 Weight (lb): 7 Weight (oz): 3 Infant Length (in): 19.50 Length (cm): 49.53 CORD INFORMATION BABY A No. Cord Vessels: 3 Nuchal Cord : N/A Cord Blood Taken: Yes-For Eval (Mom's Blood Type - or O+) Infant Suction: None ASSESSMENT BABY A Infant Complications: None Physical Findings at Delivery: Within Normal Limits Respirations: Appears Normal Skin to Skin: Yes Copy Coordinator/ALS Called : No Infant Care By: [email or web address] Transferred To: Remains with Mother BABY B INFORMATION : N/A SIGNATURES Signature: with User ID: [email or web address]
[2019-04-28] MEDS: FERROUS SULFATE 325 MG TABLET PO SCH (18:13)
[2019-04-28] MEDS: DOCUSATE SODIUM 100 MG CAPSULE PO SCH (18:13)
[2019-04-28] MEDS: FAMOTIDINE 20 MG TABLET PO SCH (22:00)
[2019-04-28] MEDS: IBUPROFEN 800 MG TABLET PO SCH (22:15)
[2019-04-29] MEDS: ACETAMINOPHEN WITH CODEINE #3 TABLET PO PRN (01:32)
[2019-04-29] MEDS: IBUPROFEN 800 MG TABLET PO SCH ×3 (06:16→22:34)
[2019-04-29 07:59] LABS: HEMATOCRIT 26.8 % (36.0-47.0); MEAN CORPUSCULAR HEMOGLOBIN 30.3 pg (27.0-33.4); MEAN CORPUSCULAR HGB CONC 34.9 g/dL (32.0-36.0); MEAN CORPUSCULAR VOLUME 87 fl (80-97); PLATELET COUNT 147 10^3/uL (150-450); RED BLOOD COUNT 3.08 10^6/uL (3.72-5.28); RED CELL DISTRIBUTION WIDTH 16.6 % (11.5-14.0); WHITE BLOOD COUNT 9.9 10^3/uL (4.0-10.5)
[2019-04-29 08:06] LABS: HEMOGLOBIN 9.3 g/dL (12.0-15.5)
[2019-04-29] MEDS: FAMOTIDINE 20 MG TABLET PO SCH ×2 (09:09→22:34)
[2019-04-29] MEDS: PRENATAL VITAMIN W DHA CAPSULE PO SCH (09:09)
[2019-04-29] MEDS: DOCUSATE SODIUM 100 MG CAPSULE PO SCH ×2 (09:10→17:10)
[2019-04-29] MEDS: SENNOSIDES/DOCUSATE 8.6-50 MG 1 EACH TABLET PO SCH (09:10)
[2019-04-29] MEDS: FERROUS SULFATE 325 MG TABLET PO SCH ×2 (09:10→17:10)
--- NOTE | 2019-04-29 09:19 | PDOC PROGRESS REPORT ---
Subjective-OB Progress Note for:: 04/29/19 Subjective: Pt doing well, no concerns. She reports light bleeding, reg diet and voiding without difficulty. Physical Exam (OB) Vital Signs: Temp Pulse Resp BP Pulse Ox 97.9 F 67 16 96/50 L 100 04/29/19 07:21 04/29/19 07:21 04/29/19 07:21 04/29/19 07:21 04/29/19 07:21 Intake & Output 04/28/19 04/29/19 04/30/19 06:59 06:59 06:59 Intake Total 1000 Balance 1000 Weight 66.2 kg - PIH/Pre-Eclampsia DTR's: 2 + Clonus: Negative Headache: Absent Epigastric Pain: No Visual Changes: No - Lochia Lochia Amount: Small 10-25 ml Lochia Color: Rubra/Red - Abdomen Description: Soft Hernia Present: No Fundal Description: Firm Fundal Height: u/u - u/2 Objective-Diagnostic Laboratory: 04/29/19 07:26 04/28/19 04/28/19 04/28/19 14:17 15:00 15:00 WBC 11.4 H RBC 4.00 Hgb 11.8 L Hct 34.4 L MCV 86 MCH 29.4 MCHC 34.2 RDW 16.1 H Plt Count 174 Seg Neutrophils % 83.8 H Urine Color YELLOW Urine Appearance CLOUDY Urine pH 7.0 Ur Specific [place] 1.005 Urine Protein NEGATIVE Urine Glucose (UA) NEGATIVE Urine Ketones NEGATIVE Urine Blood SMALL H Urine Nitrite NEGATIVE Ur Leukocyte Esterase LARGE H Blood Type O POSITIVE Antibody Screen NEGATIVE 04/29/19 07:26 WBC 9.9 RBC 3.08 L Hgb 9.3 L D Hct 26.8 L MCV 87 MCH 30.3 MCHC 34.9 RDW 16.6 H Plt Count 147 L Seg Neutrophils % Urine Color Urine Appearance Urine pH Ur Specific [place] Urine Protein Urine Glucose (UA) Urine Ketones Urine Blood Urine Nitrite Ur Leukocyte Esterase Blood Type Antibody Screen Assessment and Plan(PN) - Assessment and Plan (1) Active labor at term Is this a current diagnosis for this admission?: Yes (2) Anemia due to acute blood loss Is this a current diagnosis for this admission?: Yes (3) Normal vaginal delivery Is this a current diagnosis for this admission?: Yes - Time Spent with Patient Time with patient: Less than 15 minutes Medications reviewed and adjusted accordingly: Yes - Disposition Anticipated Discharge: Home Within: within 24 hours
[2019-04-30] MEDS: ACETAMINOPHEN WITH CODEINE #3 TABLET PO PRN (01:26)
[2019-04-30] MEDS: IBUPROFEN 800 MG TABLET PO SCH (05:22)
[2019-04-30 07:26] VITALS: BP 97/52
[2019-04-30] MEDS: DOCUSATE SODIUM 100 MG CAPSULE PO SCH (09:15)
[2019-04-30] MEDS: FERROUS SULFATE 325 MG TABLET PO SCH (09:15)
[2019-04-30] MEDS: FAMOTIDINE 20 MG TABLET PO SCH (09:15)
[2019-04-30] MEDS: SENNOSIDES/DOCUSATE 8.6-50 MG 1 EACH TABLET PO SCH (09:15)
[2019-04-30] MEDS: PRENATAL VITAMIN W DHA CAPSULE PO SCH (09:15)
--- NOTE | 2019-04-30 09:26 | PDOC DISCHARGE SUMMARY ---
Impression - Admit/DC Date/PCP Admission Date/Primary Care Provider: 04/28/19 14:37 MIGUEL LAM MD Discharge Date: 04/30/19 - PP day #2, doing well, no complaints, Breast and bottle feeding, O+, Rubella Non-Immune, needs MMR. - Additional Information Resuscitation Status: Full Code Discharge Diet: As Tolerated, Regular Discharge Activity: Activity As Tolerated, No Lifting Over 10 Pounds, Pelvic Rest Referrals: MIGUEL LAM MD [Primary Care Provider] - Prescriptions: Ferrous Sulfate [Feosol 325 mg Tablet] 325 mg PO BID #60 tablet Ibuprofen [Motrin 800 mg Tablet] 800 mg PO Q8 #60 tablet Home Medications: Vit No.129/Iron/Folic [ One Daily Tablet] 1 tab PO DAILY Ferrous Sulfate [Feosol 325 mg Tablet] 325 mg PO BID #60 tablet 04/30/19 Ibuprofen [Motrin 800 mg Tablet] 800 mg PO Q8 #60 tablet 04/30/19 HPI Reason(s) for Admission: Onset of Labor Procedures: Ultrasound Intrapartum Procedure(s): Spontaneous Vaginal Delivery Results Laboratory Results: WBC 9.9 10^3/uL (4.0-10.5) 04/29/19 07:26 RBC 3.08 10^6/uL (3.72-5.28) L 04/29/19 07:26 Hgb 9.3 g/dL (12.0-15.5) L D 04/29/19 07:26 Hct 26.8 % (36.0-47.0) L 04/29/19 07:26 MCV 87 fl (80-97) 04/29/19 07:26 MCH 30.3 pg (27.0-33.4) 04/29/19 07:26 MCHC 34.9 g/dL (32.0-36.0) 04/29/19 07:26 RDW 16.6 % (11.5-14.0) H 04/29/19 07:26 Plt Count 147 10^3/uL (150-450) L 04/29/19 07:26 Lymph % (Auto) 10.8 % (13-45) L 04/28/19 15:00 [place] % (Auto) 5.0 % (3-13) 04/28/19 15:00 Eos % (Auto) 0.3 % (0-6) 04/28/19 15:00 Baso % (Auto) 0.1 % (0-2) 04/28/19 15:00 Absolute Neuts (auto) 9.6 10^3/uL (1.7-8.2) H 04/28/19 15:00 Absolute Lymphs (auto) 1.2 10^3/uL (0.5-4.7) 04/28/19 15:00 Absolute Monos (auto) 0.6 10^3/uL (0.1-1.4) 04/28/19 15:00 Absolute Eos (auto) 0.0 10^3/uL (0.0-0.6) 04/28/19 15:00 Absolute Basos (auto) 0.0 10^3/uL (0.0-0.2) 04/28/19 15:00 Seg Neutrophils % 83.8 % (42-78) H 04/28/19 15:00 Urine Color YELLOW 04/28/19 14:17 Urine Appearance CLOUDY 04/28/19 14:17 Urine pH 7.0 (5.0-9.0) 04/28/19 14:17 Ur Specific [place] 1.005 04/28/19 14:17 Urine Protein NEGATIVE mg/dL (NEGATIVE) 04/28/19 14:17 Urine Glucose (UA) NEGATIVE mg/dL (NEGATIVE) 04/28/19 14:17 Urine Ketones NEGATIVE mg/dL (NEGATIVE) 04/28/19 14:17 Urine Blood SMALL (NEGATIVE) H 04/28/19 14:17 Urine Nitrite NEGATIVE (NEGATIVE) 04/28/19 14:17 Urine Bilirubin NEGATIVE (NEGATIVE) 04/28/19 14:17 Urine Urobilinogen NEGATIVE mg/dL (<2.0) 04/28/19 14:17 Ur Leukocyte Esterase LARGE (NEGATIVE) H 04/28/19 14:17 Urine Ascorbic Acid NEGATIVE (NEGATIVE) 04/28/19 14:17 Urine Opiates Screen NEGATIVE 04/28/19 14:17 Urine Methadone Screen NEGATIVE 04/28/19 14:17 Ur Barbiturates Screen NEGATIVE 04/28/19 14:17 Ur Phencyclidine Scrn NEGATIVE 04/28/19 14:17 Ur Amphetamines Screen NEGATIVE 04/28/19 14:17 U Benzodiazepines Scrn NEGATIVE 04/28/19 14:17 Urine Cocaine Screen NEGATIVE 04/28/19 14:17 U Marijuana (THC) Screen NEGATIVE 04/28/19 14:17 RPR NONREACTIVE (NONREACTIVE) 04/28/19 15:00 Chlamydia DNA (PCR) NOT DETECTED (NOT DETECT) 04/28/19 14:17 N.gonorrhoeae DNA (PCR) NOT DETECTED (NOT DETECT) 04/28/19 14:17 Blood Type O POSITIVE 04/28/19 15:00 Antibody Screen NEGATIVE 04/28/19 15:00 Plan Plan of Treatment: d/c home, f/up with [facility] in 4 wks for PP check Time Spent: Less than 30 Minutes
== END 2019-04-30 13:14 | disposition home or self-care (01) | DRG 806 ==
LOC: LC 14:11 → LR 14:37 → 2S 18:05
PROVIDERS: ADMIT Obstetrics & Gynecology Gynecology; ATTEND Obstetrics & Gynecology Gynecology
PROC: 10E0XZZ Delivery of Products of Conception, External Approach (ICD-10-PCS; principal; 2019-04-28)
DX: O99.02 Anemia complicating childbirth (principal); D62 Acute posthemorrhagic anemia; Z37.0 Single live birth; Z86.19 Personal history of other infectious and parasitic diseases; Z3A.38 38 weeks gestation of pregnancy
CPT/HCPCS: 36415; 80307; 81005; 85025; 85027; 86592; 86850; 86900; 86901; 87491; 87591; J2270; J2590; J3490